=== PATIENT | female | born 1960 | race African-American/Black ===

== ENCOUNTER 2016-11-29 08:31 | Day surgery (SDC) | payer OTHER ==
[2016-11-26 17:01] VITALS: BMI 25.2
[~2016-11-29 08:31] MED LIST: LIDOCAINE HCL 1%, 10 MG/ML (20ML VIAL) IJ ONE
--- NOTE | 2016-11-29 09:04 | HP ---
History & Physical Update - History History: No Change - Physical Physical: No Change - Assessment Assessment: No Change - Plan Plan: No Change
[2016-11-29] MEDS ORDERED: ACETAMINOPHEN 325 MG TABLET (FP) PO PRN (10:16)
[2016-11-29] MEDS ORDERED: ONDANSETRON 4 MG/2 ML VIAL IVPUSH PRN (10:16)
[2016-11-29] MEDS ORDERED: MIDAZOLAM HCL 2 MG/2 ML SINGLE DOSE VIAL ONE (10:24)
[2016-11-29] MEDS ORDERED: LACTATED RINGERS SOLUTION 1,000 ML IV SCH (10:30)
[2016-11-29] MEDS ORDERED: ROCURONIUM BROMIDE 50 MG/5 ML VIAL ONE (10:33)
[2016-11-29] MEDS ORDERED: PROPOFOL 20 ML ONE (10:33)
[2016-11-29] MEDS ORDERED: GLYCOPYRROLATE 0.2 MG/1 ML VIAL ONE (10:59)
[2016-11-29] MEDS ORDERED: DEXAMETHASONE SOD PHOSPHATE 4 MG/1 ML VIAL ONE (10:59)
[2016-11-29] MEDS ORDERED: NEOSTIGMINE METHYLSULFATE 0.5 MG/ML - 10 ML MDV ONE (10:59)
[2016-11-29] MEDS ORDERED: ONDANSETRON 4 MG/2 ML VIAL ONE (10:59)
[2016-11-29] MEDS ORDERED: KETOROLAC TROMETHAMINE 30 MG/1 ML VIAL ONE (10:59)
[2016-11-29] MEDS ORDERED: LIDOCAINE HCL/PF 2% SDV 5ML VIAL ONE (10:59)
[2016-11-29] MEDS ORDERED: LIDOCAINE HCL 1%, 10 MG/ML (20ML VIAL) ONE (11:26)
[2016-11-29] MEDS ORDERED: LIDOCAINE HCL 1%, 10 MG/ML (20ML VIAL) IJ ONE (11:34)
--- NOTE | 2016-11-29 12:03 | OP ---
Operative Note - Note: Operative Date: 11/29/16 Pre-Operative Diagnosis: Large,10 cm. soft tissue tumor right scapular area. Operation: Excision of 10 cm . large , soft tissue tumor right scapular area, deep to deep fascia with layered closure. Findings: Large polypoidal , > 10 cm. soft tissue tumor deep to deep fascia. Surgeon: Fabio Mohr Anesthesiologist/SWATCH PASTER: Akash Gresham Anesthesia: General Specimens Removed: Soft tissue tumor right scapular area. Estimated Blood Loss (mls): 50 Operative Report Dictated: Yes
[2016-11-29 12:56] VITALS: TEMP 98.6
[2016-11-29 14:26] VITALS: BP 152/74; PULSE 72
--- NOTE | 2016-11-30 12:37 | OP ---
DATE OF OPERATION: 11/29/2016 PREOPERATIVE DIAGNOSES: Large 10 cm soft tissue tumor right scapular area, HIV, opioid and nicotine dependence, hypertension. POSTOPERATIVE DIAGNOSES: Large 10 cm soft tissue tumor right scapular area, HIV, opioid and nicotine dependence, hypertension. OPERATIVE PROCEDURE: Excision of large greater than 10 cm soft tissue tumor in the right scapular area deep to the deep fascia, with layered closure. SURGEON: López Small M.D. ANESTHESIA: General anesthesia. OPERATIVE DESCRIPTION: This 56-year-old woman was brought in for excision of a large soft tissue tumor in the right scapular area. The mass area was identified, the site was marked. Patient brought to the operating room, after obtaining consent. General anesthesia was administered. Patient was placed in the left lateral position. Patient was intubated. The left side of the chest was painted and draped. The site was marked preoperatively. A big incision was made overlying the lesion in the right scapular area for about 10 cm in length. The incision was deepened through the skin, subcutaneous tissue and the deep fascia. Flaps were raised between the deep fascia superiorly and inferiorly beyond the palpable extent of the tumor. A soft tissue tumor polypoid in nature was then then palpated at the edge and this was carefully extirpated from the underlying structures down to the scapular muscles. This was completely excised sent to Pathology. It was larger than 10 cm and polypoidal. Hemostasis was then achieved using electrocautery. The wound was irrigated. The deep fascia was approximated with buried interrupted 3-0 Vicryl sutures. The skin and subcutaneous tissue was approximated with buried interrupted 3-0 Vicryl sutures. Suction was applied before the last suture. Steri-Strip was applied across the incision after applying benzoin. A pressure dressing was applied. Estimated blood loss was about 50 mL. Sponge count and instrument count was correct. Patient was extubated and transferred to the recovery room in satisfactory and stable condition. LÓPEZ SMALL M.D. VT/[id number] cc: OLVIN Duggan
--- NOTE | 2016-12-02 15:40 | PATH ---
Surgical Pathology Report Patient Name: JAIRON SIMS [facility]. Rec. #: [id number] /Age/Gender: 1960 (Age: 56) / F Account: [id number] Location: [facility] SURGICAL Taken: 11/29/2016 Received: 11/29/2016 Reported: 12/02/2016 Physicians: López Mohr M.D. Specimen(s) Received SOFT TISSUE TUMIOR RIGHT SCAPULAR AREA Clinical History Soft tissue tumor right scapula Final Diagnosis SOFT TISSUE, RIGHT SCAPULA AREA, TUMOR, EXCISION: CONSISTENT WITH FIBROLIPOMA. Electronically Signed Ralf Ellington M.D. Gross Description Received in formalin, labeled "soft tissue tumor right scapula," is a 12.5 x 10.5 x 3.0 cm portion of yellow, lobulated soft tissue. Sectioning reveals homogeneous yellow, smooth fatty tissue is. No areas of hemorrhage or necrosis are identified. [employer] sections are submitted in 5 cassettes. /11/29/201611/29/2016
== END 2016-11-29 14:05 | disposition home or self-care (01) ==
LOC: JASU-SURG 08:31
PROVIDERS: ATTEND Specialist
PROC: 0JBD0ZZ Excision of Right Upper Arm Subcutaneous Tissue and Fascia, Open Approach (ICD-10-PCS; principal; 2016-11-29 10:00)
DX: D49.2 Neoplasm of unspecified behavior of bone, soft tissue, and skin (principal)
CPT/HCPCS: 88300-TC; 94760

== ENCOUNTER → 2019-06-01 | Outpatient (CLI) | payer OTHER | LOC: YHH 08:53 ==